=== PATIENT | male | born 1995 | race Caucasian/White ===

== ENCOUNTER 2017-03-01 19:40 | Emergency (ER) | payer MEDICAID, OTHER ==
[~2017-03-01] VITALS: Ht 172.7 cm; Wt 75.0 kg
[~2017-03-01 19:40] MED LIST: AMBI5TAB PO; DICL50TA3 PO; LORA0.5T PO; OXCA150T2 PO; TRAM50TA PO
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
[2017-03-01 20:33] VITALS: BP 133/78; PULSE 89; RESP 16; TEMP 98.3; O2SAT 99
[2017-03-01 20:56] LABS: AUTOMATED NEUTROPHIL # 4.6 TH/MM3 (1.8-7.7); BASOPHIL % 0.4 % (0.0-2.0); EOSINOPHIL # 0.3 TH/MM3 (0-0.4); EOSINOPHIL % 3.3 % (0.0-4.0); HEMATOCRIT 46.9 % (39.0-51.0); HEMO FLAGS DIFF FINAL; LYMPH % 30.3 % (9.0-44.0); LYMPHOCYTE # 2.4 TH/MM3 (1.0-4.8); MEAN CORPUSCULAR HEMOGLOBIN 29.6 PG (27.0-34.0); MEAN CORPUSCULAR HGB CONC 34.9 % (32.0-36.0); MONO % 8.2 % (0.0-8.0); NEUT % 57.8 % (16.0-70.0); PLATELET COUNT 188 TH/MM3 (150-450); RED BLOOD COUNT 5.52 MIL/MM3 (4.50-5.90)
[2017-03-01 21:30] LABS: ANION GAP 6 MEQ/L (5-15)
[2017-03-01 21:33] LABS: ACETAMINOPHEN LESS THAN 2.0 MCG/ML (10.0-30.0); ALKALINE PHOSPHATASE 81 U/L (45-117); ALT (GPT) 111 U/L (9-52); AST (GOT) 47 U/L (15-39); BICARBONATE 27.1 MEQ/L (21.0-32.0); BLOOD UREA NITROGEN 7 MG/DL (7-18); CHLORIDE 108 MEQ/L (98-107); GLOMERULAR FILTRATION RATE 129 ML/MIN (>89); SODIUM (NA) 141 MEQ/L (136-145); TOTAL BILIRUBIN ADULT 0.5 MG/DL (0.2-1.0)
[2017-03-02 06:36] VITALS: BP 122/61; PULSE 60; RESP 13; O2SAT 98
[2017-03-02 08:20] VITALS: BP 122/78; PULSE 76; RESP 16; TEMP 97.8; O2SAT 99
[2017-03-02 10:42] LABS: AMPHETAMINE, URINE POS (NEG); BARBITURATES, URINE NEG (NEG); COCAINE, URINE NEG (NEG)
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
== END 2017-03-02 11:26 | disposition home or self-care (01) ==
LOC: NEPB 19:40
DX: F43.25 Adjustment disorder with mixed disturbance of emotions and conduct (principal); X78.9XXA Intentional self-harm by unspecified sharp object, initial encounter; Z72.89 Other problems related to lifestyle; F17.210 Nicotine dependence, cigarettes, uncomplicated
CPT/HCPCS: 80053; 80307; 85025; 99283

== ENCOUNTER 2017-03-16 23:54 | Inpatient (IN) | payer MEDICAID, OTHER ==
[~2017-03-16] VITALS: Ht 177.8 cm; Wt 80.0 kg
[2017-03-16 23:57] VITALS: BP 134/77; PULSE 92; RESP 16; TEMP 98.8; O2SAT 100
[2017-03-17] MEDS ORDERED: IBUPROFEN 600 MG TAB PO PRN
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
[2017-03-17 00:58] LABS: AUTOMATED NEUTROPHIL # 5.6 TH/MM3 (1.8-7.7); BASOPHIL % 0.3 % (0.0-2.0); EOSINOPHIL # 0.2 TH/MM3 (0-0.4); HEMATOCRIT 45.8 % (39.0-51.0); HEMO FLAGS DIFF FINAL; LYMPH % 27.4 % (9.0-44.0); LYMPHOCYTE # 2.5 TH/MM3 (1.0-4.8); MEAN CELL VOLUME 85.4 FL (80.0-100.0); MEAN CORPUSCULAR HEMOGLOBIN 29.5 PG (27.0-34.0); MEAN CORPUSCULAR HGB CONC 34.5 % (32.0-36.0); NEUT % 61.3 % (16.0-70.0); PLATELET COUNT 187 TH/MM3 (150-450); RED BLOOD COUNT 5.36 MIL/MM3 (4.50-5.90); RED CELL DISTRIBUTION WIDTH 13.7 % (11.6-17.2); WHITE BLOOD COUNT 9.2 TH/MM3 (4.0-11.0)
[2017-03-17 01:23] LABS: ALKALINE PHOSPHATASE 95 U/L (45-117); TOTAL BILIRUBIN ADULT 0.4 MG/DL (0.2-1.0)
[2017-03-17 01:38] LABS: ALT (GPT) 133 U/L (9-52); ANION GAP 8 MEQ/L (5-15); AST (GOT) 74 U/L (15-39); BICARBONATE 26.4 MEQ/L (21.0-32.0); BLOOD UREA NITROGEN 10 MG/DL (7-18); CHLORIDE 105 MEQ/L (98-107); GLOMERULAR FILTRATION RATE 87 ML/MIN (>89); SODIUM (NA) 139 MEQ/L (136-145)
[2017-03-17 01:39] LABS: POTASSIUM 3.9 MEQ/L (3.5-5.1)
[2017-03-17 02:38] VITALS: BP 114/58; PULSE 73; RESP 18; O2SAT 98
[2017-03-17 02:44] LABS: AMPHETAMINE, URINE POS (NEG); BARBITURATES, URINE NEG (NEG); COCAINE, URINE POS (NEG)
[2017-03-17 06:37] VITALS: BP 124/56; PULSE 84; RESP 18; O2SAT 99
[2017-03-17 10:00] VITALS: BP 112/56; PULSE 73; RESP 18
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
[2017-03-17] MEDS ORDERED: ALUMINUM/MAGNESIUM/SIMETH 30 ML CUP PO PRN (19:00)
[2017-03-17] MEDS ORDERED: MAGNESIUM HYDROXIDE SUSP 30 ML CUP PO PRN (19:00)
[2017-03-17 20:30] VITALS: BP 136/61; PULSE 82; RESP 18; TEMP 98; O2SAT 98
[2017-03-18 05:00] VITALS: BP 115/58; PULSE 63; RESP 16; TEMP 87.4; O2SAT 100
[2017-03-18 09:29] LABS: ANION GAP 7 MEQ/L (5-15); BICARBONATE 29.7 MEQ/L (21.0-32.0); BLOOD UREA NITROGEN 8 MG/DL (7-18); CHLORIDE 104 MEQ/L (98-107); GLOMERULAR FILTRATION RATE 139 ML/MIN (>89); LDL CHOLESTEROL 78 MG/DL (0-99); POTASSIUM 3.9 MEQ/L (3.5-5.1); SODIUM (NA) 141 MEQ/L (136-145)
[2017-03-18 14:10] LABS: HEMOGLOBIN A1a 0.9 %; HEMOGLOBIN A1b 1.5 %; HEMOGLOBIN Ao 86.7 %; HEMOGLOBIN LA1C 1.9 %; HEMOGLOBIN P3 3.4 %
--- NOTE | 2017-03-18 17:23 | HHI.HP ---
Provisional Diagnosis Admission Date Mar 17, 2017 at 19:01 Vendor I. Adjustment disorder with mixed disturbance of emotions and conduct. Certification of Person's Competence To Provide Express and Informed Consent I have personally examined James Lowe , a person being served at [facility] on, Mar 18, 2017 17:19. Express and informed consent means consent voluntarily given in writing, by a competent person, after sufficient explanation and disclosure of the subject matter involved to enable the person to make a knowing and willful decision without any element of force, fraud, deceit, duress, or other form of constraint or coercion. This person is 18 years of age or older, is not now known to be incompetent to consent to treatment with a guardian advocate, and does not have a health care surrogate or proxy currently making medical treatment decisions. I have found this person to be one of the following: [X] Competent to provide express and informed consent, as defined above, for voluntary admission to this facility and is competent to provide express and informed consent for treatment. He/she has the consistent capacity to make well reasoned, willful, and knowing decisions concerning his or her medical or mental health treatment. The person fully and consistently understands the purpose of the admission for examination/placement and is fully capable of personally exercising all rights assured under [place] Incompetent to provide express and informed consent to voluntary admission, and this is incompetent to provide express and informed consent to treatment. The person must be transferred to involuntary status and a petition for a guardian advocate filed with the Circuit Court. [] Refusing to provide express and informed consent to voluntary admission but is competent to provide express and informed consent for treatment. The person must be discharged or transferred to involuntary status. Form shall be completed within 24 hours of a person's arrival at the receiving facility and filed in the clinical record of each person: 1. Admitted on a voluntary basis 2. Permitted to provide express and informed consent to his/her own treatment 3. Allowed to transfer from involuntary to voluntary status 4. Prior to permitting a person to consent to his or her own treatment after having been previously found incompetent to consent to treatment. History of Present Illness Capacity: Has Capacity HPI 21-year-old male with a long history of substance abuse and multiple suicide complaints as well as self-injurious behavior complaints. Patient used to be treated at [facility] for similar drug and behavioral issues. On this occasion he was reportedly fighting with his girlfriend and trying to inhale compressed air to kill himself. However he also has a history of recent cocaine and marijuana use. Upon interview, the patient admits to suicidal ideation with multiple plans. However this appears to be quite manipulative as the patient has been to this hospital and [facility] multiple times. His primary issue appears to be polysubstance abuse and he recently injected himself with methamphetamine. He does complain of depressed mood, suicidal ideation, anhedonia, social withdrawal, decreased sleep, diminished self-esteem, etc. He does not work consistently and does not have an adequate education. Review of Systems ROS Limitations: Clinical Condition Past Psych History Psychological trauma history None Violence risk - others (6 mos) Minimal Violence risk - self (6 mos) Moderate Substance Abuse History Drugs/Alcohol past 12 months Abuses multiple substances daily or almost daily. Past Family Social History Coded Allergies: Insect Venoms (Verified Allergy, Severe, Anaphylaxis, 03/17/17) Tylenol (Verified Adverse Reaction, Unknown, nausea, 03/17/17) No Active Prescriptions or Reported Meds Current Medications Medications (Trade) Dose Ordered Sig/Galileo Route Start Time Stop Time Status Last Admin (Motrin) 600 mg Q8H PRN PO 03/17/17 00:00 03/17/17 23:23 (Milk Of Magnesia Liq) 30 ml DAILY PRN PO 03/17/17 19:00 (Mag-Al Plus Susp Liq) 30 ml Q6H PRN PO 03/17/17 19:00 Family History Positive for substance abuse and alcoholism. Social History Unemployed. Uneducated. He continues to abuse substances. Patient's Strengths (min. 2) Verbal and resilient. Physical Exam Vital Signs Vital Signs Date Time Temp Pulse Resp B/P Pulse Ox O2 Delivery O2 Flow Rate FiO2 03/18/17 05:00 87.4 63 16 115/58 100 03/17/17 10:00 Room Air Mental Status Examination Previous Suicide Attempts: No Previous Homicide Attempts: No Assessment & Plan Problem List: (1) Adjustment disorder with mixed disturbance of emotions and conduct ICD Code: F43.25 Assessment & Plan Estimated LOS: 1-2 days patient will be evaluated over the next 24 hours for steve torres mental health conditions like depression. If it is felt that he is manipulative and simply abusing drugs, he is likely to be discharged. Kaz Augustin MD Mar 18, 2017 17:23
[2017-03-18 18:00] VITALS: BP 124/62; PULSE 75; RESP 16; TEMP 98.1; O2SAT 98
[2017-03-19 05:59] VITALS: BP 113/66; PULSE 59; RESP 16; TEMP 98; O2SAT 98
--- NOTE | 2017-03-19 10:48 | HHI.DS ---
Psychiatry Discharge Summary Inpatient Psychiatric care?: Yes Advance Directive: No Reason Not Provided: declined Mental Health AdvanceDirective: No Health Care Proxy: No Admission Admission Date Mar 17, 2017 at 19:01 Admission Diagnosis: (1) Adjustment disorder with mixed disturbance of emotions and conduct ICD Code: F43.25 Brief History 21-year-old male with a long history of substance abuse and multiple suicide complaints as well as self-injurious behavior complaints. Patient used to be treated at [facility] for similar drug and behavioral issues. On this occasion he was reportedly fighting with his girlfriend and trying to inhale compressed air to kill himself. However he also has a history of recent cocaine and marijuana use. Upon interview, the patient admits to suicidal ideation with multiple plans. However this appears to be quite manipulative as the patient has been to this hospital and [facility] multiple times. His primary issue appears to be polysubstance abuse and he recently injected himself with methamphetamine. He does complain of depressed mood, suicidal ideation, anhedonia, social withdrawal, decreased sleep, diminished self-esteem, etc. He does not work consistently and does not have an adequate education. Tobacco Use In Past 30 Days: 5 or More Cigarettes/Day Alcohol Use: 4 or More Times Per Week Hospital Course Patient participated in individual and group therapies. He was present for all meals and was appropriately social. In fact, he was apparently happy and euthymic throughout his hospital stay. He was pleased to be discharged today. No procedures were performed. Results Blood Pressure 113 / 66 Vital Signs Date Time Temp Pulse Resp B/P Pulse Ox O2 Delivery O2 Flow Rate FiO2 03/19/17 05:59 98.0 59 16 113/66 98 03/17/17 10:00 Room Air Laboratory Tests Test 03/17/17 03/17/17 00:10 02:05 Monocytes (%) (Auto) 9.0 % (0.0-8.0) Estimat Glomerular Filtration 87 ML/MIN (>89) Rate Aspartate Amino Transf 74 U/L (15-39) (AST/SGOT) Alanine Aminotransferase 133 U/L (9-52) (ALT/SGPT) Urine Amphetamines Screen POS (NEG) Urine Cocaine Screen POS (NEG) Urine Cannabinoids Screen POS (NEG) Laboratory Results Test 03/18/17 07:40 Hemoglobin A1c 5.1 % (4.3-6.0) Triglycerides Level 119 MG/DL (42-150) Cholesterol Level 144 MG/DL (120-200) LDL Cholesterol 78 MG/DL (0-99) HDL Cholesterol 42.0 MG/DL (40.0-60.0) Summary of Procedures None Pending results at discharge: No Medications # of Antipsychotic meds at D/C: 0 Approp Antipsych med options 1 - Minimum of three failed multiple trials of monotherapy. 2 - Documented plan to taper to monotherapy due to previous use of multiple meds OR cross-taper in progress at D/C. 3 - Documentation of augmentation of Clozapine. 4 - Justification other than those listed in allowable values 1-3, document here : Discharge Discharge Date: Mar 19, 2017 Discharge Diagnosis: (1) Adjustment disorder with mixed disturbance of emotions and conduct ICD Code: F43.25 Mental Status Exam at Disch No suicidal or homicidal ideation, plan or intent was seen. No psychotic symptoms. Cognition was intact. Patient verbally contracted for safety. Pt Condition on Discharge: Stable Discharge Disposition: Discharge Home Discharge Instructions Diet Instructions: As Tolerated, No Restrictions Activities you can perform: Regular-No Restrictions Discharge Time <= 30 minutes Discharge/Advance Care Plan Health Problems: (1) Adjustment disorder with mixed disturbance of emotions and conduct Goals to promote your health * To prevent worsening of your condition and complications * To maintain your health at the optimal level Directions to meet your goals Take your medications as prescribed Follow your dietary instruction Follow activity as directed Keep your appointments as scheduled Take your immunizations and boosters as scheduled If your symptoms worsen call your PCP, if no PCP go to Urgent Care Center or Emergency Room For 17/06 questions related to your inpatient stay or results of tests pending at discharge, please contact Dr. Kaz Augustin at Smoking is Dangerous to Your Health. Avoid second hand smoking Kaz Augustin MD Mar 19, 2017 10:48
== END 2017-03-19 13:50 | disposition home or self-care (01) | DRG 882 ==
LOC: NEPD 23:54 → NEDA 03-17 19:01 → H260 03-17 20:20
PROVIDERS: ADMIT Psychiatry & Neurology Psychiatry; ATTEND Psychiatry & Neurology Psychiatry
DX: F43.25 Adjustment disorder with mixed disturbance of emotions and conduct (principal); R45.851 Suicidal ideations; F15.10 Other stimulant abuse, uncomplicated; F17.210 Nicotine dependence, cigarettes, uncomplicated; F12.10 Cannabis abuse, uncomplicated; Z59.0 Homelessness
CPT/HCPCS: 80048; 80053; 80061; 80307; 83036; 85025; 99284

== ENCOUNTER 2017-03-23 18:51 | Emergency (ER) | payer MEDICAID, OTHER ==
[~2017-03-23] VITALS: Ht 177.8 cm; Wt 80.0 kg
[2017-03-23 19:27] VITALS: BP 127/73; PULSE 88; RESP 18; TEMP 98.5; O2SAT 100
[2017-03-23] MEDS ORDERED: CEPH-460 PO (19:38)
[2017-03-23] MEDS ORDERED: BACT800T5 PO (19:38)
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
[2017-03-23 20:04] LABS: AUTOMATED NEUTROPHIL # 5.7 TH/MM3 (1.8-7.7); BASOPHIL % 0.4 % (0.0-2.0); EOSINOPHIL # 0.2 TH/MM3 (0-0.4); EOSINOPHIL % 2.3 % (0.0-4.0); HEMATOCRIT 41.6 % (39.0-51.0); HEMO FLAGS DIFF FINAL; LYMPHOCYTE # 2.5 TH/MM3 (1.0-4.8); MEAN CELL VOLUME 85.9 FL (80.0-100.0); MEAN CORPUSCULAR HEMOGLOBIN 29.3 PG (27.0-34.0); MEAN CORPUSCULAR HGB CONC 34.1 % (32.0-36.0); NEUT % 61.3 % (16.0-70.0); PLATELET COUNT 214 TH/MM3 (150-450); RED BLOOD COUNT 4.84 MIL/MM3 (4.50-5.90); RED CELL DISTRIBUTION WIDTH 13.6 % (11.6-17.2); WHITE BLOOD COUNT 9.3 TH/MM3 (4.0-11.0)
[2017-03-23 20:13] LABS: AMPHETAMINE, URINE NEG (NEG); BARBITURATES, URINE NEG (NEG); COCAINE, URINE POS (NEG)
[2017-03-23 20:26] LABS: ANION GAP 5 MEQ/L (5-15); AST (GOT) 57 U/L (15-39); BICARBONATE 29.3 MEQ/L (21.0-32.0); BLOOD UREA NITROGEN 8 MG/DL (7-18); CHLORIDE 107 MEQ/L (98-107); GLOMERULAR FILTRATION RATE 118 ML/MIN (>89); POTASSIUM 3.5 MEQ/L (3.5-5.1); SODIUM (NA) 141 MEQ/L (136-145)
[2017-03-23 20:29] LABS: ALKALINE PHOSPHATASE 95 U/L (45-117); ALT (GPT) 110 U/L (9-52); TOTAL BILIRUBIN ADULT 0.3 MG/DL (0.2-1.0)
[2017-03-23 22:11] VITALS: BP 121/65; PULSE 72; RESP 18; O2SAT 100
[2017-03-24 02:54] VITALS: BP 126/61; PULSE 70; RESP 18; O2SAT 99
[2017-03-24 06:32] VITALS: BP 118/58; PULSE 73; RESP 18; O2SAT 100
--- NOTE | 2017-03-24 12:06 | PD.CONS ---
Provisional Diagnosis Admission Date Farnham I. Substance induced mood disorder, polysubstance dependence, including cannabis, amphetamines, cocaine and benzodiazepines, history of bipolar disorder Farnham II. Unspecified personality disorder, strong cluster B traits, rule out borderline, rule out antisocial Farnham III. No medical history Farnham IV. Multiple ER visits under Forbes act with drugs related problems Farnham V. 55 History of Present Illness Service Psychiatry Consult Requested By Primary Care Physician No Primary Care Physician HPI The patient is a 21-year-old man, domicile with his brother in [place], single, unemployed, with psychiatric history of bipolar disorder, polysubstance dependence, including cannabis, cocaine, benzodiazepines and amphetamines, 2 previous psychiatric hospitalizations, numerous ER visits under Forbes act due to drug-related problems, extensive history of self cutting behavior without SI, no previous suicidal attempts, no significant medical history, who is brought in by police under a [place] Act because he has several cuts on his arms. Patient has been seen this month by Dr. Farnsworth with a very similar presentation, recommendation was reviewed. On psychiatric evaluation today patient presents calm, cooperative, charming, requesting to be discharged "because I already feels better, I was just too high last night". Patient denies depressive symptoms, he denies anxiety, he denies den and psychosis. Patient denies suicidal or homicidal ideation, he denies visual and auditory hallucinations. He is now clinically sober, logical, coherent and relevant. Oriented 3. No withdrawal visible or reported. Collateral information from his brother obtained who doesn't share concerns about the safety of the patient and is willing to come and pick him up in the ER once discharged. Review of Systems Constitutional: DENIES: Diaphoretic episodes, Fatigue, Fever, Weight gain, Weight loss, Chills, Dizziness, Change in appetite, Night Sweats Eyes: DENIES: Blurred vision, Diplopia, Eye inflammation, Eye pain, Vision loss , Photosensitivity, Double Vision Ears, nose, mouth, throat: DENIES: Tinnitus, Hearing loss, Vertigo, Nasal discharge, Oral lesions, Throat pain, Hoarseness, Ear Pain, Running Nose, Epistaxis, Sinus Pain, Toothache, Odynophagia Respiratory: DENIES: Apneas, Cough, Snoring, Wheezing, Hemoptysis, Sputum production, Shortness of breath Cardiovascular: DENIES: Chest pain, Palpitations, Syncope, Dyspnea on Exertion , PND, Lower Extremity Edema, Orthopnea, Claudication Gastrointestinal: DENIES: Abdominal pain, Black stools, Bloody stools, Constipation, Diarrhea, Nausea, Vomiting, Difficulty Swallowing, Anorexia Genitourinary: DENIES: Sexual dysfunction, Urinary frequency, Urinary incontinence, Urgency, Hematuria, Dysuria, Nocturia, Penile Discharge, Testicular Pain, Testicular Swelling Musculoskeletal: DENIES: Joint pain, Muscle aches, Stiffness, Joint Swelling, Back pain, Neck pain Integumentary: DENIES: Abnormal pigmentation, Nail changes, Pruritus, Rash Hematologic/lymphatic: DENIES: Bruising, Lymphadenopathy Immunologic/allergic: DENIES: Eczema, Urticaria Neurologic: DENIES: Abnormal gait, Headache, Localized weakness, Paresthesias, Seizures, Speech Problems, Tremor, Poor Balance Psychiatric: DENIES: Anxiety, Confusion, Mood changes, Depression, Hallucinations, Agitation, Suicidal Ideation, Homicidal Ideation, Delusions Past Family Social History Coded Allergies: Insect Venoms (Verified Allergy, Severe, Anaphylaxis, 03/23/17) Tylenol (Verified Adverse Reaction, Unknown, nausea, 03/23/17) Active Scripts Sulfamethoxazole-Trimethoprim (Bactrim DS)800-160 Mg Tab1 Tab PO BID #14 TAB Ref 0 Prov:Katherin Miramontes MD 03/23/17 Cephalexin (Keflex)500 Mg [id number] Mg PO Q6H 7 Days Ref 0 Prov:Katherin Miramontes MD 03/23/17 Family History Patient denies a family significant history Social History Patient was born and raised in [place], he lives with his brother and [facility], he is unemployed, single, his highest level of education is 10th grade Patient's Strengths (min. 2) Verbal communication Physical Exam On physical exam and no EPS, no withdrawal, no stiffness, tremors present, Vital Signs Vital Signs Date Time Temp Pulse Resp B/P Pulse Ox O2 Delivery O2 Flow Rate FiO2 03/24/17 06:32 73 18 118/58 100 03/23/17 19:27 98.5 Lab Results BAL was negative, toxicology positive for cocaine and cannabis Mental Status Examination Appearance young man, age appearing, good hygiene, calm and cooperative Speech: Unremarkable Orientation: x3 Memory: Unremarkable Thought Process: Logical Thought Content: Unremarkable Hallucination Type: None Suicidal Ideation: No Previous Suicide Attempts: No Homicidal Ideation: No Previous Homicide Attempts: No Judgment: WNL Affect: Good Mood: Appropriate Motor Activity: Normal gait Assessment & Plan Problem List: (1) Polysubstance abuse Assessment & Plan: Or psychotic evaluation today the patient does not present any evidence of acute, concerning or significant depression, anxiety, den or psychosis. Patient denies suicidal or homicidal ideation, he denies visual and auditory hallucinations. Self cutting behavior is a well-documented coping mechanism and is stressed releasing strategy in this patient, and he doesn't usually do it with suicidal intentions. Obviously, his constant and persistent polysubstance use doesn't help him. Patient does not meet criteria for psychiatric admission at this moment, he would really benefit of detoxing and alone time and comprehensive rehabilitation program. Extensive psycho education , support and motivation provided. Brother and patient verbalize agreement with the plan. Forbes act will be lifted. Patient will be discharged with his brother. ICD Code: F19.10 Assessment & Plan Estimated LOS: days Donald Mckenzie MD Mar 24, 2017 12:06
== END 2017-03-24 11:36 | disposition home or self-care (01) ==
LOC: NEPD 18:51 → NEPJ 03-24 11:36
DX: S41.112A Laceration without foreign body of left upper arm, initial encounter (principal); L03.113 Cellulitis of right upper limb; F17.200 Nicotine dependence, unspecified, uncomplicated; F19.94 Other psychoactive substance use, unspecified with psychoactive substance-induced mood disorder; F19.10 Other psychoactive substance abuse, uncomplicated; F12.20 Cannabis dependence, uncomplicated; F14.20 Cocaine dependence, uncomplicated; F15.20 Other stimulant dependence, uncomplicated; F13.20 Sedative, hypnotic or anxiolytic dependence, uncomplicated; X78.9XXA Intentional self-harm by unspecified sharp object, initial encounter; Z86.59 Personal history of other mental and behavioral disorders; Z87.09 Personal history of other diseases of the respiratory system; Z86.69 Personal history of other diseases of the nervous system and sense organs
CPT/HCPCS: 80053; 80307; 85025; 99283

== ENCOUNTER 2017-05-09 10:03 | Emergency (ER) | payer MEDICAID, OTHER ==
[~2017-05-09] VITALS: Ht 177.8 cm; Wt 79.7 kg
[~2017-05-09 10:03] MED LIST changes: -AMBI5TAB PO; +BACT800T5 PO; +CEPH-460 PO; -DICL50TA3 PO; -LORA0.5T PO; -OXCA150T2 PO; -TRAM50TA PO
[2017-05-09 10:18] VITALS: BP 114/72; PULSE 78; RESP 16; TEMP 98; O2SAT 99
[2017-05-09] MEDS ORDERED: KETOROLAC TROMETHAMINE 60 MG/2 ML (IM) VIAL IM ONE (10:30)
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
[2017-05-09 11:53] VITALS: RESP 16
== END 2017-05-09 12:01 | disposition home or self-care (01) ==
LOC: PHED 10:03
DX: M70.31 Other bursitis of elbow, right elbow (principal)
CPT/HCPCS: 73080; 96372; 99284; J1885

== ENCOUNTER 2017-06-14 20:53 | Emergency (ER) | payer MEDICAID, OTHER ==
[~2017-06-14] VITALS: Ht 177.8 cm; Wt 65.0 kg
[2017-06-14 21:08] VITALS: BP 146/98; PULSE 93; RESP 18; TEMP 99.5; O2SAT 95
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
[2017-06-14 22:09] LABS: AUTOMATED NEUTROPHIL # 8.1 TH/MM3 (1.8-7.7); BASOPHIL % 0.4 % (0.0-2.0); EOSINOPHIL # 0.2 TH/MM3 (0-0.4); EOSINOPHIL % 1.8 % (0.0-4.0); HEMATOCRIT 54.1 % (39.0-51.0); HEMO FLAGS DIFF FINAL; LYMPH % 21.5 % (9.0-44.0); LYMPHOCYTE # 2.6 TH/MM3 (1.0-4.8); MEAN CELL VOLUME 87.1 FL (80.0-100.0); MEAN CORPUSCULAR HEMOGLOBIN 29.5 PG (27.0-34.0); MEAN CORPUSCULAR HGB CONC 33.9 % (32.0-36.0); MONO % 8.3 % (0.0-8.0); PLATELET COUNT 235 TH/MM3 (150-450); RED BLOOD COUNT 6.21 MIL/MM3 (4.50-5.90); RED CELL DISTRIBUTION WIDTH 13.8 % (11.6-17.2)
[2017-06-14 22:33] LABS: ANION GAP 9 MEQ/L (5-15); AST (GOT) 63 U/L (15-37); BICARBONATE 26.1 MEQ/L (21.0-32.0); BLOOD UREA NITROGEN 11 MG/DL (7-18); CHLORIDE 106 MEQ/L (98-107); GLOMERULAR FILTRATION RATE 93 ML/MIN (>89); POTASSIUM 3.4 MEQ/L (3.5-5.1); SODIUM (NA) 141 MEQ/L (136-145)
[2017-06-14 22:34] LABS: ALT (GPT) 122 U/L (12-78)
[2017-06-14 22:36] LABS: ALKALINE PHOSPHATASE 88 U/L (45-117); TOTAL BILIRUBIN ADULT 0.6 MG/DL (0.2-1.0)
[2017-06-14 22:40] LABS: AMPHETAMINE, URINE NEG (NEG); BARBITURATES, URINE NEG (NEG); COCAINE, URINE NEG (NEG)
[2017-06-14 22:46] LABS: ACETAMINOPHEN LESS THAN 2.0 MCG/ML (10.0-30.0)
[2017-06-15 00:21] VITALS: BP 130/79; PULSE 67; RESP 18; O2SAT 97
[2017-06-15 06:29] VITALS: BP 129/70; PULSE 54; RESP 18; O2SAT 99
[2017-06-15 10:30] VITALS: BP 120/61; PULSE 72; RESP 18
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
[2017-06-15 15:39] VITALS: BP 120/70; TEMP 98
== END 2017-06-15 16:00 | disposition home or self-care (01) ==
LOC: NEPD 20:53 → NEPJ 06-15 16:00
DX: F43.25 Adjustment disorder with mixed disturbance of emotions and conduct (principal); X78.9XXA Intentional self-harm by unspecified sharp object, initial encounter; F17.210 Nicotine dependence, cigarettes, uncomplicated
CPT/HCPCS: 80053; 80307; 85025; 99284